=== PATIENT | female | born 1970 | race African-American/Black ===

== ENCOUNTER 2019-04-28 00:28 | Emergency (ER) | payer SELFPAY ==
[~2019-04-28] VITALS: Ht 167.6 cm; Wt 90.7 kg
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
[2019-04-28] MEDS ORDERED: LIDOCAINE 2% 20 ML VIAL. IJ ONE ×2 (01:00→03:00)
[2019-04-28] MEDS ORDERED: DIPHTH,PERTUSS(ACELL),TET TOX 0.5 ML DISP.SYRIN. VAX IM ONE (01:00)
[2019-04-28] MEDS ORDERED: IV RINGERS SOLUTION,LACTATED 1,000 ML IV SCH (01:00)
[2019-04-28 01:39] LABS: BASO % 1 % (0-3); EOS # 0.2 x10^3/uL (0.0-0.7); EOS % 3 % (0-3); HEMATOCRIT 33.3 % (36.0-47.0); HEMOGLOBIN 10.1 g/dL (12.0-15.5); LYMPH # 1.5 x10^3/uL (1.0-4.8); LYMPH % 23 % (24-48); MEAN CORPUSCULAR HEMOGLOBIN 21 pg (25-35); MEAN CORPUSCULAR HGB CONC 30 g/dL (31-37); MEAN CORPUSCULAR VOLUME 68 fL (79-100); MONO # 0.6 x10^3/uL (0.0-1.1); MONO % 10 % (0-9); NEUT # 4.1 x10^3uL (1.8-7.7); NEUT % 64 % (31-73); PLATELET COUNT 326 x10^3/uL (140-400); RED BLOOD COUNT 4.89 x10^6/uL (3.50-5.40); RED CELL DISTRIBUTION WIDTH 18.9 % (11.5-14.5); WHITE BLOOD COUNT 6.4 x10^3/uL (4.0-11.0)
[2019-04-28 01:46] LABS: BILIRUBIN,URINE NEG (NEG); CLARITY,URINE CLEAR; COLOR,URINE YELLOW; GLUCOSE,URINE NEG (NEG)
[2019-04-28 01:47] LABS: BACTERIA,URINE 0 /HPF (0-FEW); NITRITE,URINE NEG (NEG); RBC,URINE 0 /HPF (0-2); SQUAMOUS EPITHELIAL CELL,UR OCC /LPF; UROBILINOGEN,URINE 0.2 mg/dL (0.2 mg/dL); WBC,URINE OCC /HPF (0-4)
[2019-04-28 01:52] LABS: BARBITURATES NEG (NEG); BENZODIAZEPINES NEG (NEG); CANNABINOIDS POS (NEG); COCAINE POS (NEG); METHADONE NEG (NEG); OPIATES NEG (NEG); PHENCYCLIDINE NEG (NEG)
[2019-04-28 01:54] LABS: ALBUMIN 3.2 g/dL (3.4-5.0); CALCIUM 8.6 mg/dL (8.5-10.1); DIRECT BILIRUBIN 0.1 mg/dL (0.0-0.2); GFR 71.6; MAGNESIUM 1.7 mg/dL (1.8-2.4); POTASSIUM 3.9 mmol/L (3.5-5.1); TOTAL BILIRUBIN 0.3 mg/dL (0.2-1.0); TOTAL PROTEIN 7.8 g/dL (6.4-8.2)
[2019-04-28 01:55] LABS: AMPHETAMINE/METHAMPHETAMINE POS (NEG)
[2019-04-28] MEDS ORDERED: NEOMY/BACITR/POLYMYXIN OINT PACKET. TP ONE ×2 (02:33→03:00)
--- NOTE | 2019-04-28 02:35 | RAD ---
CT lumbar spine without contrast HISTORY: Fall, severe lower back pain. TECHNIQUE: Noncontrast imaging lumbar spine multiplanar reconstructions was acquired. FINDINGS: Lumbar vertebral body height and alignment intact. 2 mm anterolisthesis of L4 on L5 associated with advanced disc disease and facet arthrosis. No fracture. No spondylolysis defect. Paraspinal tissues are unremarkable. L4-5 there is advanced disc height loss with vacuum disc and a large disc bulge along with lateral endplate spurring and bulky facet spurs contribute to severe spinal canal, lateral recess and neural foraminal stenoses. L5-S1 posterior disc height loss with disc bulge and endplate and facet spurring with [id number] spinal canal and neural foraminal stenoses. IMPRESSION: No acute osseous injury lumbar spine. Lumbar disc disease and facet arthritis as described above. Exposure: One or more of the following individualized dose reduction techniques were utilized for this examination: 1. Automated exposure control 2. Adjustment of the mA and/or kV according to patient size 3. Use of iterative reconstruction technique Electronically signed by: Rod Dillon MD (04/28/2019 2:31 AM) [facility]
[2019-04-28] MEDS ORDERED: BUPIVACAINE PF 0.75% 10 ML VIAL ONE (02:43)
[2019-04-28] MEDS ORDERED: HYDR-1179 PO (02:50)
[2019-04-28] MEDS ORDERED: CEPH-264 PO (02:50)
[2019-04-28] MEDS ORDERED: CYCL-331 PO (02:50)
[2019-04-28] MEDS ORDERED: KETOROLAC 30 MG/ML VIAL. IV ONE (03:00)
[2019-04-28] MEDS ORDERED: ALBUTEROL SULFATE 8GM INHALER. INH ONE (03:00)
[2019-04-28] MEDS ORDERED: BUPIVACAINE MPF 0.5% 30 ML VIAL. SQ ONE (03:00)
[2019-04-28] MEDS ORDERED: ORPHENADRINE CITRATE 60 MG/2 ML VIAL. IV ONE (03:00)
[2019-04-28] MEDS ORDERED: IV NORMAL SALINE 50ML 50 ML ONE (03:01)
[2019-04-28] MEDS ORDERED: cefTRIAXone SODIUM 1 GM VIAL ONE (03:01)
--- NOTE | 2019-04-28 03:22 | RAD ---
Left hand x-rays 3 views HISTORY: Fall, left hand pain and laceration at the palmar. FINDINGS: No fracture or dislocation. Mild osteoarthritic change at the first carpal metacarpal joint. The soft tissues are unremarkable. IMPRESSION: No acute osseous injury. PA and lateral chest x-rays HISTORY: Fall, cough, congestion. FINDINGS: Heart size normal. Mediastinal silhouette normal. Pulmonary interstitial infiltrates are present diffusely. No pulmonary consolidation. No pneumothorax. No pleural effusions. Bones are unremarkable. IMPRESSION: Diffuse pulmonary infiltrates. Findings could represent atypical infection including viral pneumonitis or mycoplasma pneumonia, pulmonary edema or interstitial lung disease. Electronically signed by: Rod Dillon MD (04/28/2019 3:19 AM) [facility] [place]
--- NOTE | 2019-04-28 03:22 | RAD ---
Left hand x-rays 3 views HISTORY: Fall, left hand pain and laceration at the palmar. FINDINGS: No fracture or dislocation. Mild osteoarthritic change at the first carpal metacarpal joint. The soft tissues are unremarkable. IMPRESSION: No acute osseous injury. PA and lateral chest x-rays HISTORY: Fall, cough, congestion. FINDINGS: Heart size normal. Mediastinal silhouette normal. Pulmonary interstitial infiltrates are present diffusely. No pulmonary consolidation. No pneumothorax. No pleural effusions. Bones are unremarkable. IMPRESSION: Diffuse pulmonary infiltrates. Findings could represent atypical infection including viral pneumonitis or mycoplasma pneumonia, pulmonary edema or interstitial lung disease. Electronically signed by: Rod Dillon MD (04/28/2019 3:19 AM) [facility] [email or web address]
[2019-04-28 03:45] VITALS: BP 160/107
== END 2019-04-28 03:45 | disposition home or self-care (01) ==
LOC: ER 00:28
DX: S61.412A Laceration without foreign body of left hand, initial encounter (principal); S05.12XA Contusion of eyeball and orbital tissues, left eye, initial encounter; M54.5 Low back pain; E83.42 Hypomagnesemia; J40 Bronchitis, not specified as acute or chronic; D50.9 Iron deficiency anemia, unspecified; F15.10 Other stimulant abuse, uncomplicated; F12.10 Cannabis abuse, uncomplicated; F17.210 Nicotine dependence, cigarettes, uncomplicated; F10.20 Alcohol dependence, uncomplicated; Y90.0 Blood alcohol level of less than 20 mg/100 ml; W01.0XXA Fall on same level from slipping, tripping and stumbling without subsequent striking against object, initial encounter; Y93.89 Activity, other specified; Y92.89 Other specified places as the place of occurrence of the external cause; Y99.8 Other external cause status
CPT/HCPCS: 12002; 36415; 71046; 72131; 73130; 80048; 80076; 80307; 81001; 81025; 83735; 85025; 90471; 90715; 94640; 96365; 96375; 99285; J0696; J1885; J2360; J3490; J7120; J7613; J2001

== ENCOUNTER 2019-05-09 16:37 | Emergency (ER) | payer SELFPAY ==
[~2019-05-09 16:37] MED LIST: CEPH-264 PO; CYCL-331 PO; HYDR-1179 PO
[2019-05-09 16:39] VITALS: BP 146/82
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
== END 2019-05-09 16:57 | disposition home or self-care (01) ==
LOC: ER 16:37
DX: S61.412D Laceration without foreign body of left hand, subsequent encounter (principal); I10 Essential (primary) hypertension; F17.210 Nicotine dependence, cigarettes, uncomplicated; F10.20 Alcohol dependence, uncomplicated; Y90.9 Presence of alcohol in blood, level not specified; X58.XXXD Exposure to other specified factors, subsequent encounter
CPT/HCPCS: 99281

== ENCOUNTER 2019-05-16 16:16 | Emergency (ER) | payer SELFPAY ==
[~2019-05-16] VITALS: Ht 167.6 cm; Wt 90.7 kg
[2019-05-16 16:20] VITALS: BP 149/96
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
== END 2019-05-16 17:07 | disposition home or self-care (01) ==
LOC: ER 16:16
DX: S61.412D Laceration without foreign body of left hand, subsequent encounter (principal); I10 Essential (primary) hypertension; F17.210 Nicotine dependence, cigarettes, uncomplicated; X58.XXXD Exposure to other specified factors, subsequent encounter
CPT/HCPCS: 29130; 99283

== ENCOUNTER 2019-08-01 12:41 | Emergency (ER) | payer SELFPAY ==
[~2019-08-01] VITALS: Ht 167.6 cm; Wt 90.7 kg
[2019-08-01] MEDS ORDERED: ADENOSINE 6 MG/2 ML VIAL IV ONE ×2 (12:53→13:00)
[2019-08-01] MEDS ORDERED: METOPROLOL TARTRATE 5 MG/5 ML VIAL. IV ONE (13:00)
[2019-08-01] MEDS ORDERED: METOPROLOL TART IMMED RELEASE 25 MG TABLET PO ONE (13:15)
--- NOTE | 2019-08-01 13:31 | RAD ---
EXAM: Chest, single view. HISTORY: Chest pain. COMPARISON: 04/28/2019 FINDINGS: A frontal view of the chest is obtained. There is stable mild diffuse increased interstitial opacity. There is increased opacity overlying the lower thorax due to asymmetric overlying soft tissues. The heart is normal in size. There is no consolidation, pleural effusion or pneumothorax. IMPRESSION: Stable mild diffuse increased interstitial opacity. This may be due to interstitial infiltrate or chronic interstitial changes. Electronically signed by: Saira Cardozo MD (08/01/2019 1:29 PM) [place] [id number]
[2019-08-01 13:49] LABS: BASO % 1 % (0-3); EOS # 0.1 x10^3/uL (0.0-0.7); EOS % 2 % (0-3); HEMATOCRIT 36.4 % (36.0-47.0); HEMOGLOBIN 10.6 g/dL (12.0-15.5); LYMPH # 1.1 x10^3/uL (1.0-4.8); LYMPH % 12 % (24-48); MEAN CORPUSCULAR HEMOGLOBIN 20 pg (25-35); MEAN CORPUSCULAR HGB CONC 29 g/dL (31-37); MEAN CORPUSCULAR VOLUME 68 fL (79-100); MONO % 11 % (0-9); NEUT % 75 % (31-73); PLATELET COUNT 282 x10^3/uL (140-400); RED BLOOD COUNT 5.35 x10^6/uL (3.50-5.40); RED CELL DISTRIBUTION WIDTH 18.1 % (11.5-14.5); WHITE BLOOD COUNT 9.4 x10^3/uL (4.0-11.0)
[2019-08-01 13:56] LABS: BARBITURATES NEG (NEG); BENZODIAZEPINES NEG (NEG); CANNABINOIDS POS (NEG); COCAINE POS (NEG); METHADONE NEG (NEG); OPIATES NEG (NEG); PHENCYCLIDINE NEG (NEG)
[2019-08-01 13:57] LABS: AMPHETAMINE/METHAMPHETAMINE NEG (NEG)
[2019-08-01 13:58] LABS: CALCIUM 8.4 mg/dL (8.5-10.1); CREATININE 0.9 mg/dL (0.6-1.0); GFR 80.9; POTASSIUM 4.5 mmol/L (3.5-5.1)
[2019-08-01 14:06] LABS: HYPOCHROMIA MOD; MICROCYTOSIS MOD; POLYCHROMASIA PRESENT
[2019-08-01 14:07] LABS: ANISOCYTOSIS SLIGHT; PLT ESTIMATE ADEQUATE (ADEQUATE)
[2019-08-01 14:09] LABS: OVALOCYTES PRESENT; TARGET CELLS OCC; TEAR DROP CELLS OCC
--- NOTE | 2019-08-01 14:23 | PHYS DOC ---
Text Text Diagnosis SVT supraventricular tachycardia Cocaine abuse General Chief Complaint: CHEST PAIN Stated Complaint: CHEST PAINS Time Seen by MD: 12:49 Source: patient Exam Limitations: no limitations History of Present Illness Initial Comments 49 years old female presented emergency department with chest tightness and palpitations symptoms started about 2 hours ago stated she was in bed when this happened, patient reported that she's been drinking and snorting cocaine heavily past the 48 hours No shortness breath Allergies: Coded Allergies: No Known Drug Allergies (Unverified , 04/28/19) Past Medical History Surgical History: noncontributory Social History Smoker: non-smoker Drugs: cocaine, marijuana All Other Systems: Reviewed and Negative Physical Exam General Appearance: WD/WN HEENT: PERRL/EOMI Respiratory: chest non-tender, lungs clear, normal breath sounds Cardiovascular: tachycardia Gastrointestinal: normal bowel sounds, non tender Extremities: normal range of motion, non-tender, normal inspection, no pedal edema 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
[2019-08-01] MEDS ORDERED: METO-239 PO (14:24)
[2019-08-01] MEDS ORDERED: LORazepam 1 MG TABLET PO ONE (14:30)
[2019-08-01] MEDS ORDERED: AZIT500T2 PO (14:53)
[2019-08-01 15:20] VITALS: BP 136/85
--- NOTE | 2019-08-02 06:10 | EKG ---
[address] [address] Test Date: 2019-08-01 Test Time: 12:57:44 Pat Name: SELAM MOSS Department: Room: Gender: F Bulk Folder: : 1970 Requested By: JOAQUÍN PULLIAM Order Number: [id number] Reading MD: Measurements Intervals [place] Rate: 199 P: MN: QRS: 49 QRSD: 72 T: 66 QT: 250 QTc: 463 Interpretive Statements SUPRAVENTRICULAR TACHYCARDIA ST & T ABNORMALITY, CONSIDER INFERIOR ISCHEMIA OR LEFT VENTRICULAR STRAIN ABNORMAL ECG RI6.01 No previous ECG available for comparison
--- NOTE | 2019-08-02 06:12 | EKG ---
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
== END 2019-08-01 15:27 | disposition home or self-care (01) ==
LOC: ER 12:43
DX: I47.1 Supraventricular tachycardia (principal); F14.10 Cocaine abuse, uncomplicated; F12.10 Cannabis abuse, uncomplicated
CPT/HCPCS: 36415; 71045; 80048; 80307; 84484; 85025; 93005; 96374; 99285; J0153

== ENCOUNTER 2019-10-05 16:57 | Emergency (ER) | payer SELFPAY ==
[~2019-10-05] VITALS: Ht 175.3 cm; Wt 100.0 kg
[~2019-10-05 16:57] MED LIST changes: +AZIT500T2 PO; +METO-239 PO
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
--- NOTE | 2019-10-05 18:02 | RAD ---
PA and lateral chest. HISTORY: Cough PA and lateral views were taken of the chest. Heart is normal in size. There is peribronchial thickening. There are hazy bilateral diffuse infiltrates. There is no pleural effusion. Viral or atypical pneumonias can have this pattern. There is slight scoliosis. IMPRESSION: 1. Peribronchial thickening with bilateral hazy infiltrates. Electronically signed by: Sonny Garcia MD (10/05/2019 5:59 PM) [id number]
--- NOTE | 2019-10-05 18:04 | RAD ---
Lumbar spine 3 views. HISTORY: Tailbone pain. 3 views were taken of the lumbar spine. There is slight scoliosis convex to the right. There is transitional anatomy with diminutive 12th ribs. There is degenerative disc disease with disc space narrowing at L4-5. There is mild spondylolisthesis at L4-5. There is no acute fracture. IMPRESSION: 1. Spondylolisthesis L4-5. 2. Mild scoliosis. Electronically signed by: Sonny Garcia MD (10/05/2019 6:01 PM) [id number]
[2019-10-05] MEDS ORDERED: DOXYCYCLINE HYCLATE 100 MG TABLET PO ONE (18:15)
[2019-10-05] MEDS ORDERED: cefTRIAXone IM 250 MG VIAL IM ONE (18:15)
[2019-10-05] MEDS ORDERED: metroNIDAZOLE 500 MG TABLET PO ONE ×2 (18:15)
[2019-10-05] MEDS ORDERED: LEVO750T31 PO (18:15)
[2019-10-05] MEDS ORDERED: CYCL-331 PO (18:17)
[2019-10-05] MEDS ORDERED: LIDO700A21 TP (18:17)
[2019-10-05] MEDS ORDERED: ONDANSETRON ODT 4 MG TAB.RAPDIS PO ONE (18:30)
[2019-10-05] MEDS ORDERED: AZITHROMYCIN 250 MG TABLET. PO ONE (18:30)
[2019-10-05 18:47] VITALS: BP 156/103
[2019-10-07 00:07] LABS: CHLAMYDIA PROBE Negative (Negative)
== END 2019-10-05 18:41 | disposition home or self-care (01) ==
LOC: ER 16:57
DX: J18.9 Pneumonia, unspecified organism (principal); N89.8 Other specified noninflammatory disorders of vagina; M51.36 Other intervertebral disc degeneration, lumbar region; E11.9 Type 2 diabetes mellitus without complications; I10 Essential (primary) hypertension; F17.210 Nicotine dependence, cigarettes, uncomplicated
CPT/HCPCS: 71046; 72100; 87491; 87591; 96372; 99284; J0456; J0696; Q0111; Q0162; 36415